=== PATIENT | female | born 2000 | race Hispanic/Latino ===

== ENCOUNTER 2019-09-27 12:02 | Emergency (ER) | payer OTHER ==
[2019-09-27 13:34] LABS: Absolute Lymphocytes (CBC) 1.7 K/uL (0.7-4.9); Basophils % 0.3 % (0-1.3); Hematocrit 33.6 % (36.0-45.0); Lymphocytes % 15.9 % (15.3-44.8); MPV 8.6 fL (7.6-11.3); RBC Red Blood Cell Count 3.85 M/uL (3.86-4.86)
[2019-09-27 13:41] LABS: Urine Blood 2+ (NEG); Urine Glucose NEGATIVE (NEG); Urine Protein 1+ (NEG); Urine Specific Gravity >1.030 (1.005-1.030)
[2019-09-27 13:46] LABS: BUN Blood Urea Nitrogen 10 mg/dL (7-18); Bicarbonate 24 mmol/L (21-32); Glucose Level 91 mg/dL (74-106); Sodium Level 138 mmol/L (136-145)
--- NOTE | 2019-09-27 14:15 | RAD REPORT ---
EXAM DESCRIPTION: US - Extremity Nonvascular Limited - 09/27/2019 2:00 pm CLINICAL HISTORY: left adnexal area swelling Left hip pain and swelling COMPARISON: No comparisons TECHNIQUE: Real-time sonographic evaluation of the area of interest was performed. FINDINGS: Hypoechoic enlarged oblong lesions are present in the area of interest left groin region. These are suspected to represent enlarged lymph nodes. No abscess is suspected.
--- NOTE | 2019-09-27 14:20 | RAD REPORT ---
EXAM DESCRIPTION: US - Transvaginal OB - 09/27/2019 2:00 pm CLINICAL HISTORY: , vaginal bleeding Pelvic pain COMPARISON: No comparisons FINDINGS: The uterus measures 8.8 x 4.9 x 3.6 cm. Endometrium measures 6 mm. No IUP is identified. The maternal adnexa and ovaries are within normal limits. Normal Doppler blood flow was demonstrated to both ovaries. Mildly complicated 22 mm right ovarian cyst. No pelvic ascites. IMPRESSION: No IUP is identified within the uterus. In the setting of an elevated HCG level, the fin dings would be compatible with of unknown location. Serial HCG levels and follow-up pelvic ultrasound in 7-10 days is recommended.
--- NOTE | 2019-09-27 14:35 | ER ---
Nurse's Notes [facility] Name: Ky Frank Age: 19 yrs Sex: Female : 2000 Arrival Date: 09/27/2019 Time: 12:07 Bed 16 Private MD: Diagnosis: Threatened ;Cellulitis of abdominal wall-left lower abdomen Presentation: 09/26 12:31 Chief complaint: Patient states: Reports tenderness and pain on the L lower back ca1 radiating to the LLQ since 2 days ago. Denies fever. Denies urinary s/s. States, "I have been having my menstrual period for over 2 weeks now". Coronavirus screen: Proceed with normal triage. Patient denies a cough. Patient denies shortness of breath or difficulty breathing. Patient denies measured and/or subjective temperature greater than 100.4F prior to today's visit. Patient denies travel on a cruise ship or to a country the [facility] currently lists as an affected area. Patient denies contact with known and/or suspected case of COVID-19. Ebola Screen: Patient negative for fever greater than or equal to 101.5 degrees Fahrenheit, and additional compatible Ebola Virus Disease symptoms Patient denies exposure to infectious person. Patient denies travel to an Ebola-affected area in the 21 days before illness onset. No symptoms or risks identified at this time. Initial Sepsis Screen: Does the patient meet any 2 criteria? No. Patient's initial sepsis screen is negative. Does the patient have a suspected source of infection? No. Patient's initial sepsis screen is negative. Risk Assessment: Do you want to hurt yourself or someone else? Patient reports no desire to harm self or others. Onset of symptoms was September 27, 2019. 12:31 Method Of Arrival: Ambulatory ca1 12:31 Acuity: DELIA 3 ca1 Triage Assessment: 14:40 General: Appears in no apparent distress. Behavior is calm, cooperative. 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 - Social history:: Smoking status: Patient reports the use of cigarette tobacco products, smokes one-half pack cigarettes per day. Screenin:40 Abuse screen: Denies threats or abuse. Denies injuries from another. Nutritional iw screening: No deficits noted. Tuberculosis screening: No symptoms or risk factors identified. Fall Risk None identified. Assessment: 13:00 General: Appears in no apparent distress. comfortable, Behavior is calm, cooperative. iw Pain: Complains of pain in left femoral area. Neuro: Level of Consciousness is awake, alert, obeys commands, Oriented to person, place, time, situation, Moves all extremities. Full function. Cardiovascular: Patient's skin is warm and dry. Respiratory: Respiratory effort is even, unlabored, Respiratory pattern is regular, symmetrical. GI: No signs and/or symptoms were reported involving the gastrointestinal system. Derm: Skin is intact, is healthy with good turgor. Musculoskeletal: Range of motion: intact in all extremities. Vital Signs: 12:31 BP 103 / 69; Pulse 88; Resp 15 S; Temp 97.3(O); Pulse Ox 100% on R/A; Weight 81.65 kg ca1 (R); Height 5 ft. 4 in. (162.56 cm) (R); Pain 4/10; 12:31 Body Mass Index 30.90 (81.65 kg, 162.56 cm) ca1 ED Course: 12:07 Patient arrived in ED. ag5 12:30 Patient has correct armband on for positive identification. iw 12:34 Triage completed. ca1 12:34 Arm band placed on right wrist. ca1 12:37 Tom Figueroa PA is PHCP. cp 12:37 Reyes Harrell MD is Attending Physician. cp 12:58 Bettina Polanco, DALJIT is Primary Nurse. iw 13:00 No provider procedures requiring assistance completed. Initial lab(s) drawn, by me, iw sent to lab. Inserted saline lock: 20 gauge in left antecubital area, using aseptic technique. 14:02 US Extrmty Nonvasular Limited In Process Unspecified. EDMS 14:02 US Transvaginal Ob In Process Unspecified. EDMS 14:34 Eliazar Nicole MD is Referral Physician. cp 14:40 IV discontinued, intact, bleeding controlled, No redness/swelling at site. Pressure iw dressing applied. Administered Medications: 13:23 Not Given (Physician Discretion): TORadol - Ketorolac 15 mg IVP once; left adnexal pain iw if test negative Outcome: 14:35 Discharge ordered by . carlos eduardo 14:40 Discharged to home ambulatory. iw 14:40 Condition: good 14:40 Discharge instructions given to patient, Instructed on discharge instructions, follow up and referral plans. Demonstrated understanding of instructions, follow-up care. 14:41 Patient left the ED. iw Signatures: Dispatcher [employer] Bettina Quan RN RN iw Tom Figueroa PA PA cp Acob, Cheryl RN RN ca1 Jarocho, Chavo ag5 Corrections: (The following items were deleted from the chart) 12:35 12:34 LMP 09/15/2019 ca1 ca1
--- NOTE | 2019-09-27 14:35 | EDPHYS ---
Physician Documentation [facility] Name: Ky Frank Age: 19 yrs Sex: Female : 2000 Arrival Date: 09/27/2019 Time: 12:07 Bed 16 Private MD: ED Physician Reyes Harrell HPI: 09/26 12:55 This 19 yrs old Female presents to ER via Ambulatory with complaints of Pelvic cp Pain. 12:55 The patient presents with vaginal bleeding that is light. Onset: The symptoms/episode cp began/occurred 2 week(s) ago. 12:55 Associated signs and symptoms: Pertinent negatives: diarrhea, dysuria, fever. The cp patient is sexually active, does not use protection during intercourse. Patient also c/o pain and swelling left adnexal area. 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 - Social history:: Smoking status: Patient reports the use of cigarette tobacco products, smokes one-half pack cigarettes per day. ROS: 13:00 Constitutional: Negative for body aches, chills, fever, poor PO intake. cp 13:00 Eyes: Negative for injury, pain, redness, and discharge. cp 13:00 ENT: Negative for ear pain, sore throat, difficulty swallowing, difficulty handling cp secretions. 13:00 Cardiovascular: Negative for chest pain. 13:00 Respiratory: Negative for cough, shortness of breath, wheezing. 13:00 Abdomen/GI: Positive for abdominal pain, of the left adnexal area, swelling, Negative for nausea, vomiting, and diarrhea. 13:00 : Positive for vaginal bleeding. 13:00 All other systems are negative. Exam: 13:10 Constitutional: The patient appears in no acute distress, alert, awake, non-toxic, well cp developed, well nourished. 13:10 Head/Face: Normocephalic, atraumatic. cp 13:10 Eyes: Periorbital structures: appear normal, Conjunctiva: normal, no exudate, no injection, Lids and lashes: appear normal, bilaterally. 13:10 ENT: External ear(s): are unremarkable, Nose: is normal, Mouth: is normal, Posterior pharynx: is normal, airway is patent. 13:10 Chest/axilla: Inspection: normal, Palpation: is normal, no crepitus, no tenderness. 13:10 Cardiovascular: Rate: normal, Rhythm: regular. 13:10 Respiratory: the patient does not display signs of respiratory distress, Respirations: normal, no use of accessory muscles, no retractions, labored breathing, is not present, Breath sounds: are clear throughout, no decreased breath sounds, no stridor, no wheezing. 13:10 Abdomen/GI: Inspection: abdomen appears normal, Bowel sounds: active, all quadrants, Palpation: soft, in all quadrants, mild abdominal tenderness, in the , left adnexal area. 13:10 Skin: mild erythema and swelling noted left adnexa. Vital Signs: 12:31 BP 103 / 69; Pulse 88; Resp 15 S; Temp 97.3(O); Pulse Ox 100% on R/A; Weight 81.65 kg ca1 (R); Height 5 ft. 4 in. (162.56 cm) (R); Pain 4/10; 12:31 Body Mass Index 30.90 (81.65 kg, 162.56 cm) ca1 MDM: 12:38 Patient medically screened. cp 13:00 Differential diagnosis: ectopic , ovarian cyst, pelvic inflammatory disease, cp ruptured ectopic , urinary tract infection, vaginosis, cellulitis, abscess. 14:34 Data reviewed: vital signs, nurses notes, lab test result(s), radiologic studies, cp ultrasound, and as a result, I will discharge patient. 14:34 Counseling: I had a detailed discussion with the patient and/or guardian regarding: the historical points, exam findings, and any diagnostic results supporting the discharge/admit diagnosis, lab results, radiology results, the need for outpatient follow up, an OB/Gyne specialist, to return to the emergency department if symptoms worsen or persist or if there are any questions or concerns that arise at home. 14:34 Special discussion: Need for repeat beta-hcg in 48 hrs . 09/26 12:50 Order name: CBC with Diff; Complete Time: 14:30 09/26 14:30 Interpretation: Normal except: RBC 3.85; HGB 10.9; HCT 33.6; EOSINOPHIL % 5.2. cp 09/26 12:50 Order name: BMP; Complete Time: 14:30 cp 09/26 14:30 Interpretation: Normal except: CL 108. cp 09/26 13:07 Order name: Urine Dipstick--Ancillary (enter results); Complete Time: 14:30 em1 09/26 13:07 Order name: Urine --Ancillary (enter results); Complete Time: 14:30 em1 09/26 13:19 Order name: Quantitative Hcg; Complete Time: 14:30 cp 09/26 13:19 Order name: Abo/rh Typing; Complete Time: 14:30 cp 09/26 12:49 Order name: Urine Dipstick-Ancillary (obtain specimen); Complete Time: 13:06 cp 09/26 12:49 Order name: Urine Test (obtain specimen); Complete Time: 13:06 cp 09/26 12:49 Order name: US Extrmty Nonvasular Limited; Complete Time: 14:30 cp 09/26 12:50 Order name: IV; Complete Time: 13:24 cp 09/26 13:19 Order name: Labs collected and sent; Complete Time: 13:29 cp 09/26 13:19 Order name: NPO; Complete Time: 13:29 cp 09/26 13:19 Order name: US Transvaginal Ob; Complete Time: 14:30 cp Administered Medications: 13:23 Not Given (Physician Discretion): TORadol - Ketorolac 15 mg IVP once; left adnexal pain iw if test negative Disposition: 19:00 Co-signature as Attending Physician, Reyes Harrell MD. ma2 Disposition: 09/27/19 14:35 Discharged to Home. Impression: Threatened , Cellulitis of abdominal wall - left lower abdomen. - Condition is Stable. - Discharge Instructions: Cellulitis, Adult, Threatened Miscarriage, Vaginal Bleeding During , First Trimester, Pelvic Rest. - Prescriptions for Keflex 500 mg Oral Capsule - take 1 capsule by ORAL route every 8 hours for 10 days; 30 capsule. Vitamin 27- 0.8 mg Oral Tablet - take 1 tablet by ORAL route once daily; 30 tablet. - Medication Reconciliation Form, Thank You Letter, Antibiotic Education, Prescription Opioid Use form. - Follow up: Eliazar Nicole MD; When: 48 Hours; Reason: Repeat Beta-HCG (48 Hours). - Problem is new. - Symptoms have improved. Signatures: Dispatcher [employer] Bettina Quan RN RN iw Tom Figueroa PA PA cp Alzahri, Mohammad, MD MD ma2 Kristy Perez RN RN ca1 Corrections: (The following items were deleted from the chart) 14:41 14:35 09/27/2019 14:35 Discharged to Home. Impression: Threatened ; Cellulitis iw of abdominal wall - left lower abdomen. Condition is Stable. Forms are Medication Reconciliation Form, Thank You Letter, Antibiotic Education, Prescription Opioid Use. Follow up: Eliazar Nicole; When: 48 Hours; Reason: Repeat Beta-HCG (48 Hours). Problem is new. Symptoms have improved. cp
[2019-09-27 14:47] VITALS: BP 103/69; TEMP 97.3; O2SAT 100
== END 2019-09-27 14:41 | disposition home or self-care (01) ==
LOC: ER 12:02
DX: O20.0 Threatened abortion (principal); L03.311 Cellulitis of abdominal wall; O99.330 Smoking (tobacco) complicating pregnancy, unspecified trimester; F17.210 Nicotine dependence, cigarettes, uncomplicated; Z3A.00 Weeks of gestation of pregnancy not specified
CPT/HCPCS: 36415; 76817; 76882; 80048; 81003; 81025; 84702; 85025; 86900; 86901; 99283

== ENCOUNTER 2019-09-29 11:07 | Emergency (ER) | payer OTHER ==
--- NOTE | 2019-09-29 12:36 | ER ---
Nurse's Notes [facility] Name: Ky Frank Age: 19 yrs Sex: Female : 2000 Arrival Date: 09/29/2019 Time: 11:11 Bed 13 Private MD: Diagnosis: Incomplete spontaneous without complication Presentation: 09/28 11:31 Chief complaint: Patient states: Told to come have HCG level rechecked. Pt was seen on ss the for vaginal bleeding. Pt is unknown weeks . Coronavirus screen: Proceed with normal triage. Patient denies a cough. Patient denies shortness of breath or difficulty breathing. Patient denies measured and/or subjective temperature greater than 100.4F prior to today's visit. Patient denies travel on a cruise ship or to a country the [facility] currently lists as an affected area. Patient denies contact with known and/or suspected case of COVID-19. Ebola Screen: Patient denies exposure to infectious person. Patient denies travel to an Ebola-affected area in the 21 days before illness onset. Initial Sepsis Screen: Does the patient meet any 2 criteria? No. Patient's initial sepsis screen is negative. Does the patient have a suspected source of infection? No. Patient's initial sepsis screen is negative. Risk Assessment: Do you want to hurt yourself or someone else? Patient reports no desire to harm self or others. Onset of symptoms was September 2019. 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 - Social history:: Smoking status: Patient reports the use of cigarette tobacco products, smokes one-half pack cigarettes per day. - Family history:: not pertinent. - Hospitalizations: : No recent hospitalization is reported. Screenin:09 Abuse screen: Denies threats or abuse. Nutritional screening: No deficits noted. ll1 Tuberculosis screening: No symptoms or risk factors identified. Fall Risk None identified. Total Kamara Fall Scale indicates No Risk (0-24 pts). Assessment: 12:08 General: Appears in no apparent distress. Behavior is calm, cooperative, appropriate ll1 for age, here for hcg level check. Pain: Denies pain. Neuro: No deficits noted. Cardiovascular: No deficits noted. Respiratory: No deficits noted. GI: No deficits noted. : Reports had vaginal bleeding, here for hcg level recheck. 13:03 Reassessment: Patient appears in no apparent distress at this time. No changes from ll1 previously documented assessment. Patient and/or family updated on plan of care and expected duration. Pain level reassessed. Patient is alert, oriented x 3, equal unlabored respirations, skin warm/dry/pink. Vital Signs: 11:31 BP 122 / 79; Pulse 92; Resp 16; Temp 98.2(TE); Pulse Ox 99% on R/A; Weight 81.65 kg; Height 5 ft. 4 in. (162.56 cm); Pain 0/10; 11:31 Body Mass Index 30.90 (81.65 kg, 162.56 cm) ED Course: 11:11 Patient arrived in ED. mr 11:33 Triage completed. ss 11:34 Branden Visnon MD is Attending Physician. rn 11:34 Arm band placed on right wrist. ss 11:51 Antwan Krause, DALJIT is Primary Nurse. ll1 12:09 Patient has correct armband on for positive identification. Bed in low position. Call ll1 light in reach. Side rails up X 1. 13:03 No provider procedures requiring assistance completed. Patient did not have IV access ll1 during this emergency room visit. Administered Medications: No medications were administered Outcome: 12:35 Discharge ordered by . rn 13:02 Patient left the ED. ll1 13:03 Discharged to home ambulatory. ll1 13:03 Condition: stable 13:03 Discharge instructions given to patient, Instructed on discharge instructions, follow up and referral plans. Demonstrated understanding of instructions, follow-up care. Signatures: Damir Ondina mr Branden Vinson MD MD rn Smirch, Shelby, RN RN Antwan Krause RN RN ll1
--- NOTE | 2019-09-29 12:36 | EDPHYS ---
Physician Documentation [facility] Name: Ky Frank Age: 19 yrs Sex: Female : 2000 Arrival Date: 09/29/2019 Time: 11:11 Bed 13 Private MD: ED Physician Branden Vinson HPI: 09/28 11:40 This 19 yrs old Female presents to ER via Ambulatory with complaints of HCG rn Level Recheck. 11:40 Reports seen here 2 days ago for cellulitis, which has improved with abx. Also found rn out incidentally that was , but hcg 35. Reports vaginal bleeding persistent and slightly heavier. + intermittent abd cramping. . Unknown LMP. . Onset: The symptoms/episode began/occurred at an unknown time. Severity of symptoms: At their worst the symptoms were mild. The patient has not experienced similar symptoms in the past. The patient has been recently seen by a physician: The patient has been recently seen at the [facility] Emergency Department. 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 - Social history:: Smoking status: Patient reports the use of cigarette tobacco products, smokes one-half pack cigarettes per day. - Family history:: not pertinent. - Hospitalizations: : No recent hospitalization is reported. ROS: 11:40 Constitutional: Negative for fever, chills, and weight loss, Eyes: Negative for injury, rn pain, redness, and discharge, Neck: Negative for injury, pain, and swelling, Cardiovascular: Negative for chest pain, palpitations, and edema, Respiratory: Negative for shortness of breath, cough, wheezing, and pleuritic chest pain, Abdomen/GI: + abd cramping : + vaginal bleeding MS/Extremity: Negative for injury and deformity, Skin: Negative for injury, rash, and discoloration, Neuro: Negative for headache, weakness, numbness, tingling, and seizure. Exam: 11:40 Constitutional: This is a well developed, well nourished patient who is awake, alert, rn and in no acute distress. Ambulatory to room without difficulty or assistance. Head/Face: Normocephalic, atraumatic. Cardiovascular: Regular rate and rhythm. No pulse deficits. Respiratory: No increased work of breathing, no retractions or nasal flaring. Abdomen/GI: soft, non-tender Skin: Warm, dry with normal turgor. Normal color with no rashes, no lesions, and no evidence of cellulitis. Vital Signs: 11:31 BP 122 / 79; Pulse 92; Resp 16; Temp 98.2(TE); Pulse Ox 99% on R/A; Weight 81.65 kg; ss Height 5 ft. 4 in. (162.56 cm); Pain 0/10; 11:31 Body Mass Index 30.90 (81.65 kg, 162.56 cm) ss MDM: 11:34 Patient medically screened. rn 11:42 ED course: Blood type O+ last visit. . rn 12:33 Differential Diagnosis . Data reviewed: vital signs, nurses notes, lab test rn result(s), and as a result, I will discharge patient. Counseling: I had a detailed discussion with the patient and/or guardian regarding: the historical points, exam findings, and any diagnostic results supporting the discharge/admit diagnosis, lab results, the need for outpatient follow up, to return to the emergency department if symptoms worsen or persist or if there are any questions or concerns that arise at home. Special discussion: I discussed with the patient/guardian in detail that at this point there is no indication for admission to the hospital. It is understood, however, that if the symptoms persist or worsen the patient needs to return immediately for re-evaluation. Based on the history and exam findings, there is no indication for further emergent testing or inpatient evaluation. I discussed with the patient/guardian the need to see the OB Gyne specialist for further evaluation of the symptoms. ED course: HCG decreasing, in conjunction with increased bleeding, most likely spont , will dc home with conservative management and OB f/u for further care, return precautions given and understood. . 09/28 11:39 Order name: HCG-Quantitative; Complete Time: 12:33 rn Administered Medications: No medications were administered Disposition: 09/29/19 12:35 Discharged to Home. Impression: Incomplete spontaneous without complication. - Condition is Stable. - Discharge Instructions: Incomplete Miscarriage, Miscarriage. - Medication Reconciliation Form, Thank You Letter, Antibiotic Education, Prescription Opioid Use form. - Follow up: Private Physician; When: As needed; Reason: Recheck today's complaints, Repeat Beta-HCG (48 Hours), Re-evaluation by your physician. - Problem is new. - Symptoms have improved. Signatures: Dispatcher [employer] EDCO Branden Vinson MD MD rn Smirch, Shelby, RN RN Antwan Krause RN RN ll1 Corrections: (The following items were deleted from the chart) 11:43 11:40 Constitutional: This is a well developed, well nourished patient who is awake, rn alert, and in no acute distress. Ambulatory to room without difficulty or assistance. rn 13:02 12:35 09/29/2019 12:35 Discharged to Home. Impression: Incomplete spontaneous ll1 without complication. Condition is Stable. Forms are Medication Reconciliation Form, Thank You Letter, Antibiotic Education, Prescription Opioid Use. Follow up: Private Physician; When: As needed; Reason: Recheck today's complaints, Repeat Beta-HCG (48 Hours), Re-evaluation by your physician. Problem is new. Symptoms have improved. rn
--- OUTSIDE RECORDS SUMMARY | 2019-09-29 14:12 | XMS REPORT | Clinical Summary ---
:2000 Author Organization [facility] Address [address] [place] [address] Care Team Providers Name Role Phone Pcp Primary Care Provider Unavailable Allergies No Known Allergies Medications Medication Sig Dispensed Refills Start Date End Date Status vitamin Take 1 tablet by 0 Active w/dohyicl-ooac-nzuvzp mouth daily. ( PLUS) 27 mg iron- 1 mg Tab Active Problems Problem Noted Date Pelvic pressure in 08/18/2018 Pelvic pain 08/18/2018 Back pain 08/18/2018 33 weeks gestation of 08/18/2018 Social History Tobacco Use Types Packs/Day Years Used Date Former Smoker Cigarettes 0.5 5 Quit: 03/26/20 18 Smokeless Tobacco: Never Used Qu it: 03/26/2018 Tobacco Cessation: Counseling Given: No Alcohol Use Drinks/Week oz/Week Comments No Alcohol Habits Answer Date Recorded How often do you have a drink containing alcohol? Never 04/12/2018 How many drinks containing alcohol do you have on a typical Not asked day when you are drinking? How often do you have six or more drinks on one occasion? No t asked Sex Assigned at Date Recorded Not on file Job Start Date Occupation Industry Not on file Not on file Not on file Travel History Travel Start Travel End No recent travel history available. Last Filed Vital Signs Not on file Plan of Treatment Not on file Results Not on fileafter 09/28/2018 Insurance Payer Benefit Plan / Subscriber ID Type Phone Address Group BLUE CROSS/BLUE BCBS PPO POS xxxxxxxxxxxx PPO [phone] [address] SHIELD EPO CHOICE [address] [place] [address] MEDICAID - MEDICAID [facility] xxxxxxxxx Medicaid MEDICAID [employer] Contracted CARE Advance Directives For more information, please contact:[address] [phone] Code Status Date Activated Date Inactivated Comments Full Code 08/18/2018 12:20 AM 08/18/2018 2:57 AM This code status was determined by: Patient Full Code 04/12/2018 12:14 AM 08/17/2018 11:29 PM This code status was determined by: Patient Name Relationship Healthcare Agent Relationship Ph one BG BRYAN Father Primary healthcare agent JOSÉ ROSA Mother First alternate healthcare agent [phone]
--- OUTSIDE RECORDS SUMMARY | 2019-09-29 14:12 | XMS REPORT | Continuity of Care Document ---
:2000 Author Organization [facility] t Address [address] [place] [address] Care Team Providers Name Role Phone Pcp Primary Care Physician Unavailable SCOTT TAYLOR Attending Clinician Unavailable VINAY LEWIS Attending Clinician Unavailable MERLINE Attending Clinician Unavailable SCOTT TAYLOR Admitting Clinician Unavailable HUI Admitting Clinician Unavailable Payers Payer Name Policy Type Policy Number Effective Date Expiration Date S ource Problems Condition Condition Condition Status Onset Resolution Last Treating Co mments Source Name Details Category Date Date Treatment Clinician Date Pelvic Pelvic Disease Active [facility] er Pelvic Pelvic Disease Active 2018- [facility] pain [facility] Back pain Back pain Disease Active [facility] 33 weeks 33 weeks Disease Active 2019- [facility] gestation gestation [facility]-14 [facility] 00:[facility] Medical 00 Cent er Eczema Eczema Problem Active [facility] (LUF/LI V/SA) Leukocytos Leukocytos Problem Active 2016-[address] is is 0-02 [facility] (LUF/LI V/SA) Headache Headache Problem Active 2015-04 [facility] (LUF/LI V/SA) Fever Fever Problem Active 2015-[address] [facility] (LUF/LI V/SA) Meningitis Meningitis Problem Active 2015-[address] 0[facility] (LUF/LI V/SA) Asthma Asthma Problem [facility]F/LI V/SA) Disorder Disorder Problem [facility] skin [facility] (LUF/LI V/SA) Allergies, Adverse Reactions, Alerts Allergy Allergy Status Severity Reaction(s) Onset Inactive Treating Comm ents Source Name Type Date Date Clinician No Known DA Active [facility]: d [facility] No Known DA Active [facility] 00:00: d [address] Social History Social Habit Start Date Stop Date Quantity Comments Source History [facility] - Alcohol Std Drinks [facility] History [facility] - Alcohol Binge Medical [facility] Sex Assigned At [facility] Cigarettes smoked 2018-12-23 2018-12-[address] [facility] - current (pack per 00:00:00 00:00:00 [facility] day) - Reported Cigarette 2018-12-23 2018-12-23 [facility] John - pack-years 00:00:00 00:00:00 [facility] History SDOH 2018-04-12 2018-04-[address] [facility] [facility] - Alcohol Frequency 00:00:00 00:00:00 [facility] History of tobacco 2018-03-26 Current smoker Loyda Frazier - use 00:00:00 [facility] Smoking Status Start Date Stop Date Source Never smoker [facility] (LUF/AVILA/SA) Former smoker 2018-12-23 00:00:00 2018-12-23 00:00:00 [facility] Medications Ordered Filled Start Stop Current Ordering Indication Dosage Frequency Signature Comments Components Source Medication Medication Date Date Medication? Clinician (SIG) Name Name 2019-0 Yes 1{tbl} QD Take 1 [facility]-[address] [facility] - w/calcium-i 02:01: mouth Medic al yaya-folate 05 daily. Center ( PLUS) 27 mg iron- 1 mg Tab Cephalexin Cephalexin Yes 500mg QID [facility] - [facility] l (LUF/LI V/SA) Mupirocin Mupirocin Yes 1applic BID [facility] 0.02 MG/MG 0.02 MG/MG Nhan es - Topical Topical Memoria Ointment Ointment l (LUF/LI V/SA) Prednisone Prednisone Yes [facility] l (LUF/LI V/SA) Triamcinolo Triamcinolo Yes 1applic BID [facility] - Acetonide 1 Acetonide 1 M emoria MG/ML MG/ML l Topical Topical (LUF/LI Cream Cream V/SA) Immunizations Ordered Immunization Filled Immunization Date Status Commen ts Source Name Name UTD UTD Unknown Completed [facility] (LUF/AVILA/SA) Vital Signs Vital Name Observation Time Observation Value Comments Source Body Temperature 2017-07-01 13:19:00 99.1 F [facility] (LUF/AVILA/SA) Respiratory Rate 2017-07-01 13:19:00 18 /min [facility] (F/AVILA/SA) O2% BldC Oximetry 2017-07-01 13:19:00 96 % [facility] (LUF/AVILA/SA) BP Systolic 2017-07-01 13:19:00 106 mm[Hg] [facility] (LUF/AVILA/SA) BP Diastolic 2017-07-01 13:19:00 66 mm[Hg] [facility] (LUF/AVILA/SA) Height 2017-07-01 13:19:00 64 in [facility] (LUF/AVILA/SA) Weight Measured 2017-07-01 13:19:[address] [facility] S [facility] (LUF/AVILA/SA) BMI (Body Mass Index) 2017-07-01 13:19:00 30.5 [facility] (LUF/AVILA/SA) Procedures This patient has no known procedures. Encounters Start End Encounter Admission Attending Care Care Encounter Source Date/Time Date/Time Type Type Clinicians Facility Department ID 2017-07-01 2017-07-01 [facility] [id number] 12:38[facility]00 15:11[facility]00 [facility] [address], (LUF[place] [address] Results Test Description Test Time Test Comments Results Result Comments Source BASIC METABOLIC PANEL 2018-10-02 02:31:00 Test Item Value Reference Range Interpretation Comme nts SODIUM (test code = NA) 135 mmol/L 137-145 L POTASSIUM (test code = K) 4.1 mmol/L 3.4-5.0 N CHLORIDE (test code = CL) 103 mmol/L 98-107 N CARBON DIOXIDE (test code = 25 mmol/L 22-30 N CO2) GLUCOSE (test code = GLU) 120 mg/dL 74-106 H BLOOD UREA NITROGEN (test code 9 mg/dL 7-17 N = BUN) GLOMERULAR FILTRATION RATE 115 >60 T he estimated glomerular (test code = GFR) filtration rate is computed usingpatient ra ce, age (>18), sex, and serum creatinine. If anyof the neede d data elements are missing the Laboratory cannot compute an estimation of the glomerular filtration rate. CREATININE (test code = CREAT) 0.7 mg/dL 0.5-1.0 N CALCIUM (test code = CA) 9.2 mg/dL 8.4-10.2 N Spec Comments: STAT BMPURINALYSIS [id number] 02:24:00 Test Item Value Reference Range Interpretation Comments UA COLOR (test code = COLU) Yellow Yellow UA APPEARANCE (test code = Slightly-Cloudy Clear APPU) UA GLUCOSE DIPSTICK (test Negative Negative code = DGLUU) UA BILIRUBIN DIPSTICK (test Negative Negative code = BILU) UA KETONE DIPSTICK (test code Negative mg/dL Negative = KETU) UA SPECIFIC GRAVITY (test 1.013 <1.030 code = SGU) UA BLOOD DIPSTICK (test code 1+ Negative A = AMERICO) UA PH DIPSTICK (test code = 7.0 5.0-8.0 ERMELINDA) UA PROTEIN DIPSTICK (test NEGATIVE mg/dL Negative code = PROU) UA UROBILINOGEN DIPSTICK Negative mg/dL Negative (test code = URO) UA NITRITE DIPSTICK (test Negative Negative code = PINEDA) UA LEUKOCYTE ESTERASE NEGATIVE Negative DIPSTICK (test code = LEUU) UA WBC (test code = WBCU) 4-5 /HPF <4-5 A UA RBC (test code = RBCU) 4-5 /HPF <4-5 A UA BACTERIA (test code = None /HPF None-Rare BACU) UA SQUAMOUS CELLS (test code 0-5 (RARE) /HPF 0-5 (RARE) = SQU) UA MUCUS (test code = MUCU) Rare /LPF <Rare A Spec Comments: STAT [facility] W/AUTO [id number] 02:18:00 Test Item Value Reference Range Interpretation Comments WHITE BLOOD CELL (test code = 10.7 x10 3/uL 5.0-12.0 N WBC) RED BLOOD CELL (test code = 3.27 x10 6/uL 4.20-5.40 L RBC) HEMOGLOBIN (test code = HGB) 10.1 g/dL 12.0-16.0 L HEMATOCRIT (test code = HCT) 30.9 % 36.0-46.0 L MEAN CELL VOLUME (test code = 95 fL 81-99 N MCV) MEAN CELL HGB (test code = MCH) 30.9 pg 27-31 N MEAN CELL HGB CONCENTRATION 32.7 g/dL 33-37 L (test code = MCHC) RED CELL DISTRIBUTION WIDTH 13.4 % 11.5-15.5 N (test code = RDW) PLATELET COUNT (test code = 117 x10 3/uL 130-400 L PLT) MEAN PLATELET VOLUME (test code 11.2 fL 9.4-16.4 N = MPV) NEUTROPHIL % (test code = NT%) 83.4 % 43-65 H IMMATURE GRANULOCYTE % (test 0.7 % 0.0-2.0 N code = IG%) LYMPHOCYTE % (test code = LY%) 12.7 % 20.5-45.5 L MONOCYTE % (test code = MO%) 2.4 % 5.5-11.7 L EOSINOPHIL % (test code = EO%) 0.6 % 0.9-2.9 L BASOPHIL % (test code = BA%) 0.2 % 0.2-1.0 N NUCLEATED RBC % (test code = 0.0 % 0-1.0 N NRBC%) NEUTROPHIL # (test code = NT#) 8.92 x10 3/uL 2.2-4.8 H IMMATURE GRANULOCYTE # (test 0.07 x10 3/uL 0-0.03 H code = IG#) LYMPHOCYTE # (test code = LY#) 1.36 x10 3/uL 1.3-2.9 N MONOCYTE # (test code = MO#) 0.26 x10 3/uL 0.3-0.8 L EOSINOPHIL # (test code = EO#) 0.06 x10 3/uL 0.0-0.2 N BASOPHIL # (test code = BA#) 0.02 x10 3/uL 0.0-0.1 N Spec Comments: STAT [facility] W/AUTO [id number] 05:03:00 Test Item Value Reference Range Interpretation Comments WHITE BLOOD CELL (test code = 16.5 x10 3/uL 5.0-12.0 H WBC) RED BLOOD CELL (test code = 3.44 x10 6/uL 4.20-5.40 L RBC) HEMOGLOBIN (test code = HGB) 10.7 g/dL 12.0-16.0 L HEMATOCRIT (test code = HCT) 32.3 % 36.0-46.0 L MEAN CELL VOLUME (test code = 94 fL 81-99 N MCV) MEAN CELL HGB (test code = 31.1 pg 27-31 H MCH) MEAN CELL HGB CONCENTRATION 33.1 g/dL 33-37 N (test code = MCHC) RED CELL DISTRIBUTION WIDTH 13.4 % 11.5-15.5 N (test code = RDW) PLATELET COUNT (test code = 130 x10 3/uL 130-400 N PLT) MEAN PLATELET VOLUME (test 11.5 fL 9.4-16.4 N code = MPV) NEUTROPHIL % (test code = NT%) 87.6 % 43-65 H IMMATURE GRANULOCYTE % (test 0.4 % 0.0-2.0 N code = IG%) LYMPHOCYTE % (test code = LY%) 7.8 % 20.5-45.5 L MONOCYTE % (test code = MO%) 3.8 % 5.5-11.7 L EOSINOPHIL % (test code = EO%) 0.2 % 0.9-2.9 L BASOPHIL % (test code = BA%) 0.2 % 0.2-1.0 N NUCLEATED RBC % (test code = 0.0 % 0-1.0 N NRBC%) NEUTROPHIL # (test code = NT#) 14.45 x10 3/uL 2.2-4.8 H IMMATURE GRANULOCYTE # (test 0.07 x10 3/uL 0-0.03 H code = IG#) LYMPHOCYTE # (test code = LY#) 1.28 x10 3/uL 1.3-2.9 L MONOCYTE # (test code = MO#) 0.62 x10 3/uL 0.3-0.8 N EOSINOPHIL # (test code = EO#) 0.04 x10 3/uL 0.0-0.2 N BASOPHIL # (test code = BA#) 0.03 x10 3/uL 0.0-0.1 N RAPID PLASMA [id number] 03:59:00 Test Item Value Reference Range Interpretation Comments RAPID PLASMA NONREACTIVE NONREACTIVE REAGIN (test code ~~~~~~~~~~ ~~~~~~~~~~~~~~ = RPR) ~~~~~~~~~~~~~~~ ~~~~~~~~~ ~REACTIVE RESUL TS ARE VERIFIED BY REP EAT TESTING.SPECIME NS WITH REACTIVE RESULT S ARE SENT TO [facility] FOR CONFIRMATIO N BY FTA.~~~~~~~~~~~ ~~~~~~~~~ ~~~~~~~~~~~~~~~ ~~~~~~~~~ ~~~~~ Spec Comments: if not completed in last trimesterAB HIV 1 00:02:00 Test Item Value Reference Range Interpretation Comments AB HIV 1 2 (test code = [id number]) NEGATIVE NEGATIVE Spec Comments: if not completed in last trimesterHAS HIV TESTING CONSENT FORM BEEN SIGNED? YUA RFLX MICR CULT IF [id number] 23:55:00 Test Item Value Reference Range Interpretation Comments UA COLOR (test code = Yellow Yellow COLU) UA APPEARANCE (test Clear Clear code = APPU) UA GLUCOSE DIPSTICK Negative Negative (test code = DGLUU) UA BILIRUBIN DIPSTICK Negative Negative (test code = BILU) UA KETONE DIPSTICK Negative mg/dL Negative (test code = KETU) UA SPECIFIC GRAVITY 1.025 <1.030 (test code = SGU) UA BLOOD DIPSTICK Negative Negative (test code = AMERICO) UA PH DIPSTICK (test 6.0 5.0-8.0 code = ERMELINDA) UA PROTEIN DIPSTICK NEGATIVE mg/dL Negative (test code = PROU) UA UROBILINOGEN Negative mg/dL Negative DIPSTICK (test code = URO) UA NITRITE DIPSTICK Negative Negative (test code = PINEDA) UA LEUKOCYTE ESTERASE NEGATIVE Negative DIPSTICK (test code = LEUU) UA WBC (test code = 0-3 /HPF <4-5 <10 WBC/ HPF = WBCUR) PYURIA ABSENT URINE CULTURE NOT INDICATED UA RBC (test code = 0-3 /HPF <4-5 RBCU) UA BACTERIA (test Rare /HPF None-Rare code = BACU) UA SQUAMOUS CELLS 0-5 (RARE) /HPF 0-5 (RARE) (test code = SQU) UA MUCUS (test code = Rare /LPF <Rare A MUCU) UA AMORPHOUS SEDIMENT Rare /HPF None A (test code = AMORU) SOURCE OF URINE: CLEAN CATCHIndication for culture: Dysuria/FrequencyAG HEPATITIS B [id number] 21:52:00 Test Item Value Reference Range Interpretation Comments AG HEPATITIS B SURFACE (test code = NEGATIVE NEGATIVE HBSAG) CBC W/AUTO [id number] 21:05:00 Test Item Value Reference Range Interpretation Comments WHITE BLOOD CELL (test code = 12.1 x10 3/uL 5.0-12.0 H WBC) RED BLOOD CELL (test code = 4.00 x10 6/uL 4.20-5.40 L RBC) HEMOGLOBIN (test code = HGB) 12.4 g/dL 12.0-16.0 N HEMATOCRIT (test code = HCT) 37.0 % 36.0-46.0 N MEAN CELL VOLUME (test code = 93 fL 81-99 N MCV) MEAN CELL HGB (test code = MCH) 31.0 pg 27-31 N MEAN CELL HGB CONCENTRATION 33.5 g/dL 33-37 N (test code = MCHC) RED CELL DISTRIBUTION WIDTH 13.1 % 11.5-15.5 N (test code = RDW) PLATELET COUNT (test code = 203 x10 3/uL 130-400 N PLT) MEAN PLATELET VOLUME (test code 11.4 fL 9.4-16.4 N = MPV) NEUTROPHIL % (test code = NT%) 69.9 % 43-65 H IMMATURE GRANULOCYTE % (test 0.8 % 0.0-2.0 N code = IG%) LYMPHOCYTE % (test code = LY%) 21.7 % 20.5-45.5 N MONOCYTE % (test code = MO%) 5.3 % 5.5-11.7 L EOSINOPHIL % (test code = EO%) 2.1 % 0.9-2.9 N BASOPHIL % (test code = BA%) 0.2 % 0.2-1.0 N NUCLEATED RBC % (test code = 0.0 % 0-1.0 N NRBC%) NEUTROPHIL # (test code = NT#) 8.46 x10 3/uL 2.2-4.8 H IMMATURE GRANULOCYTE # (test 0.10 x10 3/uL 0-0.03 H code = IG#) LYMPHOCYTE # (test code = LY#) 2.62 x10 3/uL 1.3-2.9 N MONOCYTE # (test code = MO#) 0.64 x10 3/uL 0.3-0.8 N EOSINOPHIL # (test code = EO#) 0.25 x10 3/uL 0.0-0.2 H BASOPHIL # (test code = BA#) 0.03 x10 3/uL 0.0-0.1 N - [place] [id number] 13:34:00 FAX: Gera Wilson MD [phone] [place]: St: PRE Name: [facility]O [facility] : 2000 Age/S: 18/F [address] Unit#: [id number] Loc: [place] [address] Phys: Gera El MD Acct: [id number] Dis Date: Status: PRE CL I PHONE #: [phone] Exam Date: 08/20/2018 1330 FAX #: [phone] Reason: see US FET BIO PH VA W/CNST REASON EXAMS: CPT CODE: [id number] [place] LTD 13810 HISTORY: Assess well-being. Location: C3 EXAM: Ultrasound biophysical profile. TECHNIQUE: Real-time sonography was performedwith the 4 MHz transducer for 10minutes. FINDINGS: Biophysical profile score is 8 out of 8based on the following: movement 2 tone 2 breathing 2 Amniotic fluid 2 There is a single living intrauterine [facility]. heartbeats were seen at a rate of 137beats per minute. The placenta is anterior with no evidence of placenta previa or retroplacental fluid collection. Amniotic fluid is visually within normal limits with TERRENCE of 18.2. The cervix is closed measuring 3.1cm in length. IMPRESSION: 1. Biophysical profile score is 8 out of 8. at 4152 Reported and signed by: Denilson Camarillo MD CC: Gera El MDTechnologist: AASHISH QIU Trnscrd Date/Time/By: 08/20/2018 (6777) : By: [email or web address] PAGE 1 Signed Report FAX: Gera Wilson MD [phone] [place]: St: PRE Name: BETO [facility] : 2000 Age/S: 18/F [address] Unit #: [id number] Loc: [place] [address] Phys: Gera El MD Acct: [id number] Dis Date: Status: PRE CLI PHONE #: [phone] Exam Date: 08/20/2018 3489 FAX #: [phone] Reason: see US FET BIO PH VA W/CNST REASON EXAMS: CPT CODE: [id number] US LTD 26454 <Continued> Orig Print D/T: S: 08/20/2018 (0681) PAGE 2 Signed Report- US FET BIO PH VA W/O [id number] 13:34:00 FAX: Y Gera El MD [phone] [place]: St: PRE Name: BETO [facility] : 2000 Age/S: 18/F [address] Unit#: [id number] Loc: [place] [address] Phys: Gera El MD Acct: [id number] Dis Date: Status: PRE CL I PHONE #: [phone] Exam Date: 08/20/2018 4390 FAX #: [phone] Reason: DECREASED MOVEMENT EXAMS: CPT CODE: [id number] US FET BIO PH VA W/O NST 68568 HISTORY: Assess well-being. Location: C3 EXAM: Ultrasound biophysical profile. TECHNIQUE: Real-time sonography was performedwith the 4 MHz transducer for 10minutes. FINDINGS: Biophysical profile score is 8 out of 8based on the following: movement 2 tone 2 breathing 2 Amniotic fluid 2 There is a single living intrauterine fetus in cephalicpresentation. heartbeats were seen at a rate of 137beats per minute. The placenta is anterior with no evidence of placenta previa or retroplacental fluid collection. Amniotic fluid is visually within normal limits with TERRENCE of 18.2. The cervix is closed measuring 3.1cm in length. IMPRESSION: 1. Biophysical profile score is 8 out of 8. at 0668 Reported and signed by: Denilson Camarillo MD CC: Gera El MDTechnologist: AASHISH QIU Trnscrd Date/Time/By: 08/20/2018 (3029) : By: [email or web address] PAGE 1 Signed Report FAX: Gera Wilson MD [phone] [place]: St: PRE Name: ADILENEJONGBETO LÓPEZ [facility] : 2000 Age/S: 18/F [address] Unit #: [id number] Loc: [place] [address] Phys: Gera El MD Acct: [id number] Dis Date: Status: PRE CLI PHONE #: [phone] Exam Date: 08/20/2018 1330 FAX #: [phone] Reason: DECREASED MOVEMENT EXAMS: CPT CODE: [id number] FET BIO PH VA W/ONST 56782 <Continued> Orig Print D/T: S: 08/20/2018 (2565) PAGE 2 Signed ReportURINALYSIS W/ REFLEX URINE [id number] 00:41:00 Test Item Value Reference Range Interpretation Comments COLOR (BEAKER) (test code = 470) Yellow CLARITY (BEAKER) (test code = 469) Hazy SPECIFIC GRAVITY UA (BEAKER) (test 1.020 1.001-1.035 code = 468) PH UA (BEAKER) (test code = 467) 6.0 5.0-8.0 PROTEIN UA (BEAKER) (test code = Negative Negative 464) GLUCOSE UA (BEAKER) (test code = Negative Negative 365) KETONES UA (BEAKER) (test code = Negative Negative 371) BILIRUBIN UA (BEAKER) (test code = Negative Negative 462) BLOOD UA (BEAKER) (test code = Negative Negative 461) NITRITE UA (BEAKER) (test code = Negative Negative 465) LEUKOCYTE ESTERASE UA (BEAKER) Negative Negative (test code = 466) UROBILINOGEN UA (BEAKER) (test < mg/dL 0.2-1.0 code = 463) RBC UA (BEAKER) (test code = 519) 1 /HPF WBC UA (BEAKER) (test code = 520) 4 /HPF BACTERIA (BEAKER) (test code = Occasional 517) MUCUS (BEAKER) (test code = 1574) Rare SQUAMOUS EPITHELIAL (BEAKER) (test 2 /HPF code = 516) AMORPHOUS CRYSTALS (BEAKER) (test Rare code = 1584) SOURCE(BEAKER) (test code = 2795) U/S, UTERUS, LIMITED, >/=1 [id number] 14:14:00Reason for exam:- > well being ; no careFINAL REPORT ULTRASOUND LIMITED HISTORY: well being, thigh cellulitis, no care COMPARISON: None TECHNIQUE: Real-time ultrasound of the was performed. FINDINGS: There is a single living intrauterine . There is cardiac activity within the fetus, with a heart rate of 138 bpm. presentation is currently breech. The placenta is in an anterior location, well above the os. No retroplacental fluid collection is identified. Cervical canal length measures 2.8 cm. No fluid is seen within the cervical canal. A three- vessel cord was visualized. A placental cord insertion was visualized. Four- chamber view of the heart was identified. No obvious structural abnormalities are identified. Detailed anatomic assessment was not performed. Am niotic fluid volume appears normal. measurements were as follows:Biparietal diameter is 3.16 cm, 16 weeks 0 daysHead circumference is 12.53 cm, 16 weeks 3 daysAbdominal circumference is 9.68 cm, 15 weeks 6 daysFemur length is 2.10 cm, 16 weeks 2 daysAverage ultrasound age is 16 weeks 1 dayEstimated weight is 143 g IMPRESSION: 1. Single living intrauterine with an average ultrasound age of 16 weeks 1 day. Signed: Angel Ordaz MDReport Verified Date/Time: 04/12/2018 14:14:21 Reading Location: [address] Transitional Reading Room CBC W/PLT COUNT & AUTO [id number] 05:38:00 Test Item Value Reference Range Interpretation Comments WHITE BLOOD CELL COUNT (BEAKER) 11.9 K/ L 4.0-10.0 H (test code = 775) RED BLOOD CELL COUNT (BEAKER) 3.11 M/ L 4.00-5.00 L (test code = 761) HEMOGLOBIN (BEAKER) (test code = 9.3 GM/DL 12.0-15.5 L 410) HEMATOCRIT (BEAKER) (test code = 27.9 % 36.0-46.0 L 411) MEAN CORPUSCULAR VOLUME (BEAKER) 89.7 fL 82.0-99.0 (test code = 753) MEAN CORPUSCULAR HEMOGLOBIN 29.9 pg 27.0-33.0 (BEAKER) (test code = 751) MEAN CORPUSCULAR HEMOGLOBIN CONC 33.3 GM/DL 32.0-36.0 (BEAKER) (test code = 752) RED CELL DISTRIBUTION WIDTH 12.3 % 12.0-15.0 (BEAKER) (test code = 412) PLATELET COUNT (BEAKER) (test 264 K/CU MM 150-430 code = 756) MEAN PLATELET VOLUME (BEAKER) 10.1 fL 6.0-11.5 (test code = 754) NUCLEATED RED BLOOD CELLS 0 /100 WBC 0-0 (BEAKER) (test code = 413) NEUTROPHILS RELATIVE PERCENT 91 % (BEAKER) (test code = 429) LYMPHOCYTES RELATIVE PERCENT 7 % (BEAKER) (test code = 430) MONOCYTES RELATIVE PERCENT 1 % (BEAKER) (test code = 431) EOSINOPHILS RELATIVE PERCENT 0 % (BEAKER) (test code = 432) BASOPHILS RELATIVE PERCENT 0 % (BEAKER) (test code = 437) NEUTROPHILS ABSOLUTE COUNT 10.88 K/ L 1.80-8.00 H (BEAKER) (test code = 670) LYMPHOCYTES ABSOLUTE COUNT 0.81 K/ L 1.48-4.50 L (BEAKER) (test code = 414) MONOCYTES ABSOLUTE COUNT (BEAKER) 0.08 K/ L 0.00-1.30 (test code = 415) EOSINOPHILS ABSOLUTE COUNT 0.03 K/ L 0.00-0.50 (BEAKER) (test code = 416) BASOPHILS ABSOLUTE COUNT (BEAKER) 0.01 K/ L 0.00-0.20 (test code = 417) IMMATURE GRANULOCYTES-RELATIVE 1 % 0-0 H PERCENT (BEAKER) (test code = 2801) COMPREHENSIVE METABOLIC [id number] 22:21:00 Test Item Value Reference Range Interpretation Comments TOTAL PROTEIN 6.6 gm/dL 6.0-8.5 (BEAKER) (test code = 770) ALBUMIN (BEAKER) 3.1 g/dL 3.5-5.0 L (test code = 1145) ALKALINE PHOSPHATASE 51 U/L 30-115 (BEAKER) (test code = 346) BILIRUBIN TOTAL 0.2 mg/dL 0.1-1.2 (BEAKER) (test code = 377) SODIUM (BEAKER) 136 meq/L 135-148 (test code = 381) POTASSIUM (BEAKER) 3.2 meq/L 3.6-5.5 L (test code = 379) CHLORIDE (BEAKER) 106 meq/L 98-106 (test code = 382) CO2 (BEAKER) (test 21 meq/L 20-29 code = 355) BLOOD UREA NITROGEN 8 mg/dL 10-26 L (BEAKER) (test code = 354) CREATININE (BEAKER) 0.65 mg/dL 0.50-1.20 (test code = 358) GLUCOSE RANDOM 89 mg/dL 70-110 (BEAKER) (test code = 652) CALCIUM (BEAKER) 8.8 mg/dL 8.5-10.5 (test code = 697) AST (SGOT) (BEAKER) 9 U/L 5-40 (test code = 353) ALT (SGPT) (BEAKER) 6 U/L 5-50 (test code = 347) EGFR (BEAKER) (test mL/min/1.73 INSUFFIC IENT code = 1092) sq m CLINICAL DATA T O CALCULATE ESTIM ATED GFR. LACTIC ACID, VENOUS, WHOLE [id number] 22:15:00 Test Item Value Reference Range Interpretation Comments LACTATE BLOOD VENOUS (2) (BEAKER) 0.8 mmol/L 0.5-2.2 (test code = 2872) CBC W/PLT COUNT & AUTO [id number] 22:08:00 Test Item Value Reference Range Interpretation Comments WHITE BLOOD CELL COUNT (BEAKER) 12.1 K/ L 4.0-10.0 H (test code = 775) RED BLOOD CELL COUNT (BEAKER) 3.18 M/ L 4.00-5.00 L (test code = 761) HEMOGLOBIN (BEAKER) (test code = 9.5 GM/DL 12.0-15.5 L 410) HEMATOCRIT (BEAKER) (test code = 28.6 % 36.0-46.0 L 411) MEAN CORPUSCULAR VOLUME (BEAKER) 89.9 fL 82.0-99.0 (test code = 753) MEAN CORPUSCULAR HEMOGLOBIN 29.9 pg 27.0-33.0 (BEAKER) (test code = 751) MEAN CORPUSCULAR HEMOGLOBIN CONC 33.2 GM/DL 32.0-36.0 (BEAKER) (test code = 752) RED CELL DISTRIBUTION WIDTH 12.3 % 12.0-15.0 (BEAKER) (test code = 412) PLATELET COUNT (BEAKER) (test 268 K/CU MM 150-430 code = 756) MEAN PLATELET VOLUME (BEAKER) 9.6 fL 6.0-11.5 (test code = 754) NUCLEATED RED BLOOD CELLS 0 /100 WBC 0-0 (BEAKER) (test code = 413) NEUTROPHILS RELATIVE PERCENT 77 % (BEAKER) (test code = 429) LYMPHOCYTES RELATIVE PERCENT 13 % (BEAKER) (test code = 430) MONOCYTES RELATIVE PERCENT 4 % (BEAKER) (test code = 431) EOSINOPHILS RELATIVE PERCENT 5 % (BEAKER) (test code = 432) BASOPHILS RELATIVE PERCENT 0 % (BEAKER) (test code = 437) NEUTROPHILS ABSOLUTE COUNT 9.28 K/ L 1.80-8.00 H (BEAKER) (test code = 670) LYMPHOCYTES ABSOLUTE COUNT 1.62 K/ L 1.48-4.50 (BEAKER) (test code = 414) MONOCYTES ABSOLUTE COUNT (BEAKER) 0.49 K/ L 0.00-1.30 (test code = 415) EOSINOPHILS ABSOLUTE COUNT 0.58 K/ L 0.00-0.50 H (BEAKER) (test code = 416) BASOPHILS ABSOLUTE COUNT (BEAKER) 0.03 K/ L 0.00-0.20 (test code = 417) IMMATURE GRANULOCYTES-RELATIVE 0 % 0-0 PERCENT (BEAKER) (test code = 2801)
[2019-09-29 17:42] VITALS: BP 122/79; TEMP 98.2; O2SAT 99
== END 2019-09-29 13:02 | disposition home or self-care (01) ==
LOC: ER 11:07
DX: O03.4 Incomplete spontaneous abortion without complication (principal); O99.331 Smoking (tobacco) complicating pregnancy, first trimester; F17.210 Nicotine dependence, cigarettes, uncomplicated; Z3A.00 Weeks of gestation of pregnancy not specified
CPT/HCPCS: 36415; 84702; 99281

== ENCOUNTER 2020-02-26 11:23 | Emergency (ER) | payer BC, OTHER ==
--- OUTSIDE RECORDS SUMMARY | 2020-02-26 11:24 | XMS REPORT | Clinical Summary ---
:2000 Author Organization [facility] Address [address] [place] [address] Care Team Providers Name Role Phone Pcp Primary Care Provider Unavailable Allergies No Known Allergies Medications Medication Sig Dispensed Refills Start Date End Date Status vitamin Take 1 tablet by 0 Active w/zsaoyys-lfoe-atoieb mouth daily. ( PLUS) 27 mg iron- [...] Assigned at Date Recorded Not on file Last Filed Vital Signs Not on file Plan of Treatment Health Maintenance Due Date Last Done Comments INFLUENZA VACCINE (#1) 2019 Results Not on fileafter 02/25/2019 Insurance Payer Benefit Plan Subscriber ID Effective Phone Address Typ e / Group Dates BLUE BCBS PPO POS [id number] 2008-Pres [phone] PPO CROSS/BLUE EPO CHOICE ent [id number] [place] [address] MEDICAID - MEDICAID [facility] [id number] 2018-Pres Me dicaid MEDICAID MGD STAR ent Contrac soheila CARE Advance Directives For more information, please contact: [phone] Code Status Date Activated Date Inactivated Comments Full Code 08/18/2018 12:20 AM 08/18/2018 2:57 AM This code status was determined by: Patient Full Code 04/12/2018 12:14 AM 08/17/2018 11:29 PM This code status was determined by: Patient Name Relationship Healthcare Agent Communication Relationship Jose Pryor Father Health Care Agent Batsheva Blount Mother [facility] Care Agent (Mobile)
--- OUTSIDE RECORDS SUMMARY | 2020-02-26 11:25 | XMS REPORT | Continuity of Care Document ---
:2000 Author Organization [facility] t Address [address] [place] [address] Care Team Providers Name Role Phone Pcp [...] l (LUF/LI V/SA) Leukocytos Leukocytos Problem Active 2015-[address] [facility] [...] Date Clinician No Known DA Active U 0 [facility] 9 [place] [facility] 00:[facility]: d [facility] No Known DA Active U [facility]- [place] [facility] 00:00: d nces 00 [facility] No Known DA Active U 0 [facility] 2[facility]11 [place] [facility] Social History Social Habit Start Date Stop Date Quantity Comments Source History [facility] B[facility] Medical [facility] ter Sex Assigned At [facility] Cigarettes smoked 2018-12-23 2018-12-23 LAXMI [place] - current (pack per 00:00:00 00:00:00 [facility] Center day) - Reported Cigarette 2018-12-23 2018-12-23 [facility] Lopez - pack-years 00:00:00 00:00:00 [facility] Tobacco use and 2018-12-23 2018-12-23 Never used [facility] kepam - exposure 00:00:00 00:00:00 [facility] Alcohol intake 2018-12-23 2018-12-23 Current [facility] [facility] - 00:00:00 00:00:00 non-drinker of Medical Ce nter alcohol (finding) History [facility] 2018-04-12 2018-04-12 1 [facility] [place] - Alcohol Frequency 00:00:00 00:00:00 [facility] Center History of tobacco 2018-03-26 Current smoker [facility] use [facility]00 [facility] Smoking Status Start Date Stop Date Source Never smoker [facility] (LUF/AVILA/SA) Former smoker 2018-12-23 00:00:00 2018-12-23 00:00:00 [facility] Medications Ordered Filled Start Stop Current Ordering Indication Dosage Frequency Signature Comments Components Source Medication Medication Date Date Medication? Clinician (SIG) Name Name Yes 1{tbl} QD Take 1 [facility] vitamin 5-21 tablet by [place] - w/calcium-i 18:21: mouth Medic al yaya-folate 29 daily. Center ( PLUS) 27 mg iron- 1 mg Tab Cephalexin Cephalexin Yes 500mg QID [facility] (LUF/LI V/SA) Mupirocin Mupirocin Yes 1applic BID I St 0.02 MG/MG 0.02 MG/MG Nhan es - Topical Topical Memoria Ointment Ointment l (LUF/LI V/SA) Prednisone Prednisone Yes [facility] (LUF/LI V/SA) Triamcinolo Triamcinolo Yes 1applic BID [facility] ne ne [facility] - Acetonide 1 Acetonide 1 M emoria MG/ML MG/ML l Topical Topical (LUF/LI Cream Cream V/SA) Immunizations Ordered Immunization Filled Immunization Date Status Commen ts Source Name Name UTD UTD Unknown Completed [facility] (LUF/AVILA/SA) Vital Signs Vital Name Observation Time Observation Value Comments Source Body Temperature 2017-07-01 13:19:00 99.1 F [facility] (LUF/AVILA/SA) Respiratory Rate 2017-07-01 13:19:00 18 /min [facility] (LUF/AVILA/SA) O2% BldC Oximetry 2017-07-01 13:19:00 96 % [facility] (LUF/AVILA/SA) BP Systolic 2017-07-01 13:19:00 106 mm[Hg] [facility] (LUF/AVILA/SA) BP Diastolic 2017-07-01 13:19:00 66 mm[Hg] [facility] (LUF/AVILA/SA) Height 2017-07-01 13:19:00 64 in [facility] (LUF/AVILA/SA) Weight Measured 2017-07-01 13:19:00 177.03 lbs [facility] Pam boles [facility] (LUF/AVILA/SA) BMI (Body Mass Index) 2017-07-01 13:19:00 30.5 [facility] (LUF/AVILA/SA) Procedures This patient has no known procedures. Plan of Care Planned Activity Planned Date Details Comments Source Future Scheduled 2019-12-07 INFLUENZA VACCINE [facility] 00:00:00 (#1) [code = [facility] INFLUENZA VACCINE (#1)] Encounters Start End Encounter Admission Attending Care Care Encounter Source Date/Time Date/Time Type Type Clinicians Facility Department ID 2017-07-01 2017-07-01 LOBO RICK [facility] [id number] [facility] 12:38:00 15:11:00 [facility] KYA ANTONETTEDINORA [facility] - UNSPECIFIE N, [address], (LUF[place] [address] Results Test Description Test Time Test Comments Results Result Comments Source URINALYSIS COMPLETE 2019-12-13 00:37:00 Test Item Value Reference Range Interpretation Comme nts UA COLOR (test code = COLU) YELLOW YELLOW UA APPEARANCE (test code = APPU) CLEAR CLEAR UA GLUCOSE DIPSTICK (test code = DGLUU) NEGATIVE MG/DL NEGATIVE UA BILIRUBIN DIPSTICK (test code = BILU) NEGATIVE NEGATIVE UA KETONE DIPSTICK (test code = KETU) NEGATIVE MG/DL NEGATIVE UA SPECIFIC GRAVITY (test code = SGU) 1.025 1.000-1.030 UA BLOOD DIPSTICK (test code = AMERICO) NEGATIVE NEGATIVE UA PH DIPSTICK (test code = ERMELINDA) 6.0 4.5-8.5 UA PROTEIN DIPSTICK (test code = PROU) NEGATIVE MG/DL NEGATIVE UA UROBILINOGEN DIPSTICK (test code = URO) 0.2 EU/dL <=1.0 UA NITRITE DIPSTICK (test code = PINEDA) NEGATIVE NEGATIVE UA LEUKOCYTE ESTERASE DIPSTICK (test code = LEUU) NEGATIVE NEGA TIVE UA WBC (test code = WBCU) 0-3 /HPF 0-3 UA RBC (test code = RBCU) 0-3 /HPF 0-3 UA EPITHELIAL CELLS (test code = EPIU) MODERATE /LPF NONE-FEW A UA BACTERIA (test code = BACU) None /HPF NEGATIVE UR HCG [id number] 00:37:00 Test Item Value Reference Range Interpretation Comments UR HCG QUAL (test code = HCGQLU) NEGATIVE NEGATIVE BASIC METABOLIC [id number] 02:31:00 Test Item Value Reference Range Interpretation Comments SODIUM (test code = 135 mmol/L 137-145 L NA) POTASSIUM (test code 4.1 mmol/L 3.4-5.0 N = K) CHLORIDE (test code = 103 mmol/L 98-107 N CL) CARBON DIOXIDE (test 25 mmol/L 22-30 N code = CO2) GLUCOSE (test code = 120 mg/dL 74-106 H GLU) BLOOD UREA NITROGEN 9 mg/dL 7-17 N (test code = BUN) GLOMERULAR FILTRATION 115 >60 The es timated RATE (test code = glomerular filtration GFR) rate is compute d usingpatient ra ce, age (>18), sex, and serum creatinine. If anyof the needed data elements are mi ssing the Laboratory cannot compute an lisa mation of the glomerul ar filtration rate . CREATININE (test code 0.7 mg/dL 0.5-1.0 N = CREAT) CALCIUM (test code = 9.2 mg/dL 8.4-10.2 N CA) Spec Comments: STAT BMPURINALYSIS [id number] 02:24:00 Test Item Value Reference Range Interpretation [...] Rare /LPF <Rare A Spec Comments: STAT [facility] W/AUTO [id number] 02:18:00 Test Item Value Reference Range Interpretation [...] 0.0-0.1 N Spec Comments: STAT CBCCBC W/AUTO [id number] 05:03:00 Test Item Value Reference Range Interpretation [...] 0.03 x10 3/uL 0.0-0.1 N RAPID PLASMA [id number] 03:59:00 Test Item Value Reference Range Interpretation Comments RAPID PLASMA NONREACTIVE NONREACTIVE REAGIN (test code ~~~~~~~~~~ ~~~~~~~~~~~~~~ = RPR) ~~~~~~~~~~~~~~~ ~~~~~~~~~ ~REACTIVE RESUL TS ARE VERIFIED BY REP EAT TESTING.SPECIME NS WITH REACTIVE RESULT S ARE SENT TO THE [facility] FOR CONFIRMATIO N BY FTA.~~~~~~~~~~~ ~~~~~~~~~ ~~~~~~~~~~~~~~~ ~~~~~~~~~ ~~~~~ Spec Comments: if not completed in last trimesterAB HIV 1 00:02:00 Test Item Value Reference Range Interpretation Comments AB HIV 1 2 (test code = FKJ23FP) NEGATIVE NEGATIVE Spec Comments: if not completed in last trimesterHAS HIV TESTING CONSENT FORM BEEN SIGNED? YUA RFLX MICR CULT IF [id number] 23:55:00 Test Item Value Reference Range Interpretation [...] CLEAN CATCHIndication for culture: Dysuria/FrequencyAG HEPATITIS B [id number] 21:52:00 Test Item Value Reference Range Interpretation Comments AG HEPATITIS B SURFACE (test code = NEGATIVE NEGATIVE HBSAG) CBC W/AUTO [id number] 21:05:00 Test Item Value Reference Range Interpretation [...] 0.03 x10 3/uL 0.0-0.1 N - US [id number] 13:34:00 FAX: Gera Wilson MD [phone] [place]: St: PRE Name: BETO BARON [facility] : 2000 Age/S: 18/F [address] Unit#: [id number] Loc: [place] [address] Phys: Gera El MD Acct: [id number] Dis Date: Status: PRE CLI PHONE #: [phone] Exam Date: 08/20/2018 1330 FAX #: [phone] Reason: see US FET BIO PH DE W/CNST REASON EXAMS: CPT CODE: [id number] [place] LTD [address]1722 HISTORY: Assess well-being. Location: C3 EXAM: Ultrasound biophysical profile. TECHNIQUE: Real-time sonography was performedwith the 4 MHz transducer for 10minutes. FINDINGS: Biophysical profile score is 8 out of 8based on the following: movement 2 tone 2 breathing 2 Amniotic fluid 2 There is a single living intrauterine fetus in [facility] alicpresentation. heartbeats were seen at a rate of 137beats per minute. The placenta is anterior with no evidence of placenta previa or retroplacental fluid collection. Amniotic fluid is visually within normal limits with TERRENCE of 18.2. The cervix is closed measuring 3.1cm in length. IMPRESSION: 1. Biophysical profile score is 8 out of 8. at 133 Reported and signed by: Denilson Camarillo MD CC: Gera El MDTechnologist: AASHISH QIU Trnscrd Date/Time/By: 08/20/2018 (5729) : By: [email or web address] PAGE 1 Signed Report FAX: Gera Wilson MD [phone] [place]: St: PRE Name: BETO BARON [facility] : 2000 Age/S: 18/F [address] Unit #: [id number] Loc: [place] [address] Phys: Gera El MD Acct: [id number] Dis Date: Status: PRE CLI PHONE #: [phone] Exam Date: 08/20/2018 1330 FAX #: [phone] Reason: see US FET BIO PH DE W/CNST REASON EXAMS: CPT CODE: [id number] US LTD 06608 <Continued> Orig Print D/T: S: 08/20/2018 (7400) PAGE 2 Signed Report- US FET BIO PH DE W/O [id number] 13:34:00 FAX: Gera Wilson MD [phone] [place]: St: PRE Name: BETO BARON [facility] : 2000 Age/S: 18/F [address] Unit#: [id number] Loc: [place] [address] Phys: Gera El MD Acct: [id number] Dis Date: Status: PRE CLI PHONE #: [phone] Exam Date: 08/20/2018 1330 FAX #: [phone] Reason: DECREASED MOVEMENT EXAMS: CPT CODE: [id number] US FET BIO PH DE W/O NST 50390 HISTORY: Assess well-being. Location: C3 EXAM: Ultrasound [...] score is 8 out of 8. at 9740 Reported and signed by: Denilson Camarillo MD CC: Gera El MDTechnologist: AASHISH QIU Trnscrd Date/Time/By: 08/20/2018 (1655) : By: [email or web address] PAGE 1 Signed Report FAX: Y Gera El MD [phone] [place]: St: PRE Name: BETO BARON [facility] : 2000 Age/S: 18/F [address] Unit #: [id number] Loc: [place] [address] Phys: Gera El MD Acct: [id number] Dis Date: Status: PRE CLI PHONE #: [phone] Exam Date: 08/20/2018 1330 FAX #: [phone] Reason: DECREASED MOVEMENT EXAMS: CPT CODE: [id number] US FET BIO PH DE W/ONST 32421 <Continued> Orig Print D/T: S: 08/20/2018 (1023) PAGE 2 Signed Rep ortURINALYSIS W/ REFLEX URINE [id number] 00:41:00 Test Item Value Reference Range Interpretation [...] code = 2795) U/S, UTERUS, LIMITED, >/=1 [id number] 14:14:00Reason for exam:- > well being ; [...] age of 16 weeks 1 day. Signed: Alycia Eastmaneport Verified Date/Time: 04/12/2018 14:14:21 Reading Location: [facility] Transitional Reading Room CBC W/PLT COUNT & AUTO [id number] 05:38:00 Test Item Value Reference Range Interpretation [...] (BEAKER) (test code = 2801) COMPREHENSIVE METABOLIC [id number] 22:21:00 Test Item Value Reference Range Interpretation [...] ESTIM ATED GFR. LACTIC ACID, VENOUS, WHOLE [id number] 22:15:00 Test Item Value Reference Range Interpretation Comments LACTATE BLOOD VENOUS (2) (BEAKER) 0.8 mmol/L 0.5-2.2 (test code = 6572) CBC W/PLT COUNT & AUTO [id number] 22:08:00 Test Item Value Reference Range Interpretation [...]
--- NOTE | 2020-02-26 12:14 | EDPHYS ---
Physician Documentation [facility] Name: Ky Frank Age: 19 yrs Sex: Female : 2000 Arrival Date: 02/26/2020 Time: 11:23 Bed 8 Private MD: ED Physician Bartolome Leach HPI: 02/25 12:07 This 19 yrs old Female presents to ER via Ambulatory with complaints of Rash. cp 12:07 The patient's rash thought to be caused by Eczema. The rash is located on the body cp diffusely. The rash can be described as erythematous, papular, vesicular. Onset: The symptoms/episode began/occurred chronic. 12:07 Associated signs and symptoms: Pertinent positives: itching, Pertinent negatives: cp difficulty breathing, fever. 12:07 Treatment given at home: has used prescribed steroid cream in past. 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 - Social history:: Smoking status: Patient reports the use of cigarette tobacco products, denies chronic smoking, but will smoke occasionally. ROS: 12:08 Constitutional: Negative for body aches, chills, fever. cp 12:08 Skin: Positive for rash, diffusely. Exam: 12:10 Constitutional: The patient appears in no acute distress, alert, awake, non-toxic, well cp developed, well nourished. 12:10 Skin: rash can be described as erythematous, papular, and is diffusely located, noted cp mild surrounding erythema, excoriations. Vital Signs: 11:42 BP 124 / 80; Pulse 84; Resp 16; Temp 98.6; Pulse Ox 100% ; Height 5 ft. 4 in. (162.56 ll1 cm); Pain 5/10; MDM: 11:58 Patient medically screened. cp 12:12 Data reviewed: vital signs, nurses notes, and as a result, I will discharge patient. cp 12:12 Differential diagnosis: dermatitis, cellulitis. 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 02/25 12:34 Order name: Urine Dipstick--Ancillary (enter results) eb 02/25 12:34 Order name: Urine --Ancillary (enter results) eb 02/25 12:11 Order name: Urine Test (obtain specimen); Complete Time: 12:35 cp 02/25 12:11 Order name: Urine Dipstick-Ancillary (obtain specimen); Complete Time: 12:35 cp Administered Medications: 12:34 Drug: SOLU-Medrol 80 mg Route: IM; Site: right gluteus; zb 12:40 Follow up: Response: No adverse reaction zb Disposition: 12:20 Chart complete. 02/26 06:57 Co-signature as Attending Physician, Bartolome Leach MD I agree with the assessment and kdr plan of care. Disposition: 02/26/20 12:13 Discharged to Home. Impression: Dermatitis, unspecified. - Condition is Stable. - Discharge Instructions: Eczema. - Prescriptions for Doxycycline Hyclate 100 mg Oral Tablet - take 1 tablet by ORAL route every 12 hours; 20 tablet. Triamcinolone Acetonide 0.5 % Topical Cream - apply 1 application by TOPICAL route 2 times per day As needed; 60 gram. - Medication Reconciliation Form, Thank You Letter, Antibiotic Education, Prescription Opioid Use form. - Follow up: Balbir Prieto MD; When: 2 - 3 days; Reason: Recheck today's complaints. - Problem is chronic. - Symptoms have improved. Signatures: Dispatcher [employer] EDMS Bartolome Leach MD MD kdr Page, Corey, PA PA Antwan Krause RN RN ll1 Yoselin Barbosa RN RN zb Corrections: (The following items were deleted from the chart) 02/25 12:42 12:13 02/26/2020 12:13 Discharged to Home. Impression: Dermatitis, unspecified. zb Condition is Stable. Prescriptions for Doxycycline Hyclate 100 mg Oral Tablet - take 1 tablet by ORAL route every 12 hours; 20 tablet, Triamcinolone Acetonide 0.5 % Topical Cream - apply 1 application by TOPICAL route 2 times per day As needed; 60 gram. and Forms are Medication Reconciliation Form, Thank You Letter, Antibiotic Education, Prescription Opioid Use. Follow up: Balbir Prieto; When: 2 - 3 days; Reason: Recheck today's complaints. Problem is chronic. Symptoms have improved. cp
--- NOTE | 2020-02-26 12:14 | ER ---
Nurse's Notes [facility] Name: Ky Frank Age: 19 yrs Sex: Female : 2000 Arrival Date: 02/26/2020 Time: 11:23 Bed 8 Private MD: Diagnosis: Dermatitis, unspecified Presentation: 02/25 11:42 Chief complaint: Patient states: Rash to all extremities for 7 years. This flare-up has ll1 been about a month. 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 Coronavirus screen: Client denies travel out of the [place] in the last 14 days. At this time, the client does not indicate any symptoms associated with coronavirus-19. Ebola Screen: Patient denies travel to an Ebola-affected area in the 21 days before illness onset. Initial Sepsis Screen: Does the patient meet any 2 criteria? No. Patient's initial sepsis screen is negative. Does the patient have a suspected source of infection? Yes: Skin breakdown/wound. Risk Assessment: Do you want to hurt yourself or someone else? Patient reports no desire to harm self or others. Onset of symptoms was January 26, 2020. 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 - Social history:: Smoking status: Patient reports the use of cigarette tobacco products, denies chronic smoking, but will smoke occasionally. Screenin:15 Abuse screen: Denies threats or abuse. Denies injuries from another. Nutritional zb screening: No deficits noted. Tuberculosis screening: No symptoms or risk factors identified. Fall Risk None identified. Assessment: 12:11 General: Appears in no apparent distress. uncomfortable, Behavior is calm, cooperative, zb appropriate for age. Pain: Complains of pain in abdomen, right arm, left arm, right leg and left leg Pain currently is 6 out of 10 on a pain scale. Neuro: Level of Consciousness is awake, alert, obeys commands, Oriented to person, place, time, situation. Cardiovascular: No deficits noted. Respiratory: Airway is patent Respiratory effort is even, unlabored. GI: No signs and/or symptoms were reported involving the gastrointestinal system. Abdomen is flat. : No signs and/or symptoms were reported regarding the genitourinary system. EENT: No signs and/or symptoms were reported regarding the EENT system. Derm: Skin is healthy with good turgor, has lesions on generalized arms, legs, torso has blisters on generalized Reports itching, pain that is 6 out of 10 on a pain scale. Musculoskeletal: Circulation, motion, and sensation intact. 12:14 Reassessment: pt states that she has used triamcinolone works well. seeking RX. zb 12:35 Reassessment: D/C pending administration of IM medication. ph Vital Signs: 11:42 BP 124 / 80; Pulse 84; Resp 16; Temp 98.6; Pulse Ox 100% ; Height 5 ft. 4 in. (162.56 ll1 cm); Pain 5/10; ED Course: 11:23 Patient arrived in ED. ds1 11:44 Triage completed. ll1 11:45 Arm band placed on. ll1 11:55 Tom Figueroa PA is PHCP. cp 11:55 Bartolome Leach MD is Attending Physician. cp 11:57 Yoselin Barbosa RN is Primary Nurse. zb 12:11 Balbir Prieto MD is Referral Physician. cp 12:16 Patient has correct armband on for positive identification. Bed in low position. Call zb light in reach. 12:42 No provider procedures requiring assistance completed. Patient did not have IV access zb during this emergency room visit. Administered Medications: 12:34 Drug: SOLU-Medrol 80 mg Route: IM; Site: right gluteus; zb 12:40 Follow up: Response: No adverse reaction zb Outcome: 12:13 Discharge ordered by MD. cp 12:42 Discharged to home ambulatory. zb 12:42 Condition: stable 12:42 Discharge instructions given to patient, family, Instructed on discharge instructions, follow up and referral plans. medication usage, Demonstrated understanding of instructions, follow-up care, medications, Prescriptions given X 2. 12:42 Patient left the ED. zb Signatures: Piper Aguilar ds1 Claire Bush RN RN ph Tom Figueroa PA PA cp Lewis, Lynsay, RN RN ll1 Yoselin Barbosa, RN RN zb
[2020-02-26 12:40] LABS: Urine Blood 1+ (NEG); Urine Glucose NEGATIVE (NEG); Urine Protein NEGATIVE (NEG); Urine Specific Gravity 1.025 (1.005-1.030); Urine pH 5.5 (5.0-7.0)
[2020-02-26] MEDS ORDERED: METHYLPREDNISOLONE 40 MG INJ ONE (12:48)
[2020-02-26 18:36] VITALS: BP 124/80; TEMP 98.6; O2SAT 100
== END 2020-02-26 12:42 | disposition home or self-care (01) ==
LOC: ER 11:23
DX: L30.9 Dermatitis, unspecified (principal); F17.210 Nicotine dependence, cigarettes, uncomplicated
CPT/HCPCS: 81025; 81003; 96372; 99283; J2920